=== PATIENT | female | born 1970 | race Caucasian/White ===

== ENCOUNTER 2018-06-17 23:21 | Emergency (ER) | payer SELFPAY ==
[~2018-06-17] VITALS: Ht 172.7 cm; Wt 54.9 kg
[2018-06-17 23:28] VITALS: BP 116/84
== END 2018-06-18 02:30 | disposition left against medical advice (07) ==
LOC: ER 23:21
DX: M79.669 Pain in unspecified lower leg (principal); R56.9 Unspecified convulsions; F12.10 Cannabis abuse, uncomplicated; F17.200 Nicotine dependence, unspecified, uncomplicated; Z90.710 Acquired absence of both cervix and uterus; Z53.21 Procedure and treatment not carried out due to patient leaving prior to being seen by health care provider

== ENCOUNTER 2018-06-18 03:23 | Emergency (ER) | payer SELFPAY ==
[~2018-06-18] VITALS: Ht 172.7 cm; Wt 63.0 kg
[2018-06-18 03:58] VITALS: BP 133/85
[2018-06-18 05:35] LABS: BASOPHILS % 0.8 % (0.0-2.0); HEMATOCRIT. 27.8 % (36.0-48.0); HEMOGLOBIN. 9.3 g/dL (12.0-16.0); LYMPHOCYTES % 18.6 % (20.0-50.0); MEAN CORPUSCULAR HEMOGLOBIN 30.3 pg (28.0-32.0); MEAN CORPUSCULAR VOLUME 90.5 fL (81.0-99.0); MEAN PLATELET VOLUME 8.2 fl (7.4-10.4); MONOCYTES % 9.6 % (2.0-8.0); PLATELET 244 x1000/uL (130-400); RED BLOOD CELL COUNT 3.07 mill/uL (4.2-5.4); RED CELL DISTRIBUTION WIDTH 17.5 % (11.6-14.6)
[2018-06-18 05:37] LABS: PROTHROMBIN TIME 9.9 sec (9.1-11.1)
[2018-06-18 05:42] LABS: CHLORIDE 109 mEq/L (98-107)
[2018-06-18 05:46] LABS: ETHANOL BLOOD < 10 mg/dL
== END 2018-06-18 05:37 | disposition left against medical advice (07) ==
LOC: ER 04:55
DX: M79.661 Pain in right lower leg (principal); R30.0 Dysuria; R21 Rash and other nonspecific skin eruption; Z86.718 Personal history of other venous thrombosis and embolism; Z85.850 Personal history of malignant neoplasm of thyroid; R23.3 Spontaneous ecchymoses; R56.9 Unspecified convulsions; F17.200 Nicotine dependence, unspecified, uncomplicated; F12.10 Cannabis abuse, uncomplicated; Z90.89 Acquired absence of other organs; Z90.710 Acquired absence of both cervix and uterus; Z91.041 Radiographic dye allergy status; Z88.8 Allergy status to other drugs, medicaments and biological substances; Z88.2 Allergy status to sulfonamides; Z88.1 Allergy status to other antibiotic agents
CPT/HCPCS: 36415; 80053; 83690; 84484; 85025; 85610; 99284; G0482